=== PATIENT | male | born 1960 | race Caucasian/White ===

== ENCOUNTER → 2019-12-26 | Outpatient (REF) | payer OTHER ==
[2019-12-27 11:51] LABS: THYROID STIMULATING HORMONE 7.62 uIU/ML (0.358-3.740)
== END ==
LOC: M SFHCLERA 15:53
PROVIDERS: ATTEND Physician Assistant
DX: E78.2 Mixed hyperlipidemia (principal); R79.89 Other specified abnormal findings of blood chemistry

== ENCOUNTER → 2020-05-30 | Outpatient (CLI) | payer OTHER ==
[~2020-05-30] MED LIST: ASPI81CH33 PO; ATOR1TAB21; LEVO50TA5
== END ==
LOC: M LABSMTC 11:51
PROVIDERS: ATTEND Anesthesiology
DX: Z01.812 Encounter for preprocedural laboratory examination (principal); Z20.828 Contact with and (suspected) exposure to other viral communicable diseases
CPT/HCPCS: C9803; U0003

== ENCOUNTER 2020-06-04 08:30 | Day surgery (SDC) | payer BC, OTHER ==
[~2020-06-04] VITALS: Ht 170.2 cm; Wt 83.5 kg
[~2020-06-04 08:30] MED LIST changes: -ASPI81CH33 PO; +LIDOCAINE 2% 100MG/5ML SDV (FOR ANES.) As Ordered ONE; +NS 1,000 ML IV ONE; +propofoL 200 MG/20 ML VIAL As Ordered ONE
[2020-06-04] MEDS ORDERED: ASPI81CH33 PO (09:15)
--- NOTE | 2020-06-04 10:00 | ROOR ---
Patient Name: Elvis Zarate Procedure Date: 06/04/2020 9:37 AM Date of : 1960 Age: 60 Room: [facility] Gender: Male Note Status: Finalized Procedure: Total Colonoscopy to Cecum + ileoscopy Indications: Screening for colorectal malignant neoplasm, Last colonoscopy: 2005 Providers: Bertrand Grier MD Referring MD: You weber [facility] Requesting Provider: Medicines: Monitored Anesthesia Care Complications: No immediate complications. Procedure: Pre-Anesthesia Assessment: - The heart rate, respiratory rate, oxygen saturations, blood pressure, adequacy of pulmonary ventilation, and response to care were monitored throughout the procedure. The Colonoscope was introduced through the anus and advanced to the cecum, identified by appendiceal orifice and ileocecal valve. The colonoscopy was performed without difficulty. The patient tolerated the procedure well. The quality of the bowel preparation was excellent. Findings: The perianal and digital rectal examinations were normal. Non-bleeding internal hemorrhoids were found during retroflexion. The hemorrhoids were small and Grade I (internal hemorrhoids that do not prolapse). Scattered small-mouthed diverticula were found in the recto-sigmoid colon, sigmoid colon and descending colon. The exam was otherwise without abnormality on direct and retroflexion views. The terminal ileum appeared normal. Impression: - Non-bleeding internal hemorrhoids. - Diverticulosis in the recto-sigmoid colon, in the sigmoid colon and in the descending colon. - The examination was otherwise normal on direct and retroflexion views. - The examined portion of the ileum was normal. - No specimens collected. - The exam was otherwise normal to the cecum. Recommendation: - Patient has a contact number available for emergencies. The signs and symptoms of potential delayed complications were discussed with the patient. Return to normal activities tomorrow. Written discharge instructions were provided to the patient. - High fiber diet. - Discharge patient to home. - Continue present medications. - Repeat colonoscopy in 10 years for screening purposes. - Return to referring physician. - The findings and recommendations were discussed with the patient. Bertrand Grier MD Bertrand Grier MD 06/04/2020 9:59:57 AM Electronically signed by Bertrand Grier MD Number of Addenda: 0 Note Initiated On: 06/04/2020 9:37 AM Estimated Blood Loss: Estimated blood loss: none.
[2020-06-04 10:30] VITALS: BP 169/96
== END 2020-06-04 10:35 | disposition home or self-care (01) ==
LOC: M OPP 08:30
PROVIDERS: ATTEND Internal Medicine Gastroenterology
DX: Z12.11 Encounter for screening for malignant neoplasm of colon (principal); K64.0 First degree hemorrhoids; K57.90 Diverticulosis of intestine, part unspecified, without perforation or abscess without bleeding

== ENCOUNTER → 2021-04-02 | Outpatient (REF) | payer BC, OTHER ==
[~2021-04-02] MED LIST changes: +ASPI81CH33 PO; -LIDOCAINE 2% 100MG/5ML SDV (FOR ANES.) As Ordered ONE; -NS 1,000 ML IV ONE; -propofoL 200 MG/20 ML VIAL As Ordered ONE
== END ==
LOC: M LAB REF 11:16
PROVIDERS: ATTEND Physician Assistant Medical
DX: E78.00 Pure hypercholesterolemia, unspecified (principal)

== ENCOUNTER → 2021-04-24 | Outpatient (CLI) | payer BC, OTHER | LOC: M LAB 16:02 | PROVIDERS: ATTEND Physician Assistant Medical | DX: E78.00 Pure hypercholesterolemia, unspecified (principal) ==

== ENCOUNTER → 2021-05-30 | Outpatient (CLI) | payer BC, OTHER ==
--- NOTE | 2021-05-30 11:08 | REP ---
INDICATION: LOW BACK PAIN, FREQUENCY OF MICTURITION COMPARISON: 02/21/2008 TECHNIQUE: Real time galarza scale and color Doppler ultrasound examination using curved array transducer. FINDINGS: Bilateral kidneys are normal in contour, size, echogenicity and reniform shape normal intrarenal vasculature noted. No hydronephrosis, nephrolithiasis, cystic or renal mass lesion. No perinephric fluid collection. Right kidney measures 11.5 x 5.0 x 5.4 cm (RI 0.62) Left kidney measures 11.5 x 4.8 x 6.1 cm (RI 0.54) The bladder is under distended but mild wall thickening is suggested. No focal bladder mass lesion identified. IMPRESSION: 1. Normal age-appropriate appearance of the bilateral kidneys. No hydronephrosis. 2. Questionable mild bladder wall thickening. <Electronically signed by Jose R Braun > 05/30/21 1100
== END ==
LOC: M WHC 09:35
PROVIDERS: ATTEND Physician Assistant Medical
DX: M54.50 Low back pain, unspecified (principal); R35.0 Frequency of micturition

== ENCOUNTER → 2021-11-05 | Outpatient (CLI) | payer BC, OTHER | LOC: M RAD 13:26 | PROVIDERS: ATTEND Physician Assistant | DX: J32.0 Chronic maxillary sinusitis (principal) ==

== ENCOUNTER → 2024-01-12 | Outpatient (REF) | payer OTHER | LOC: M LAB REF 12:35 | PROVIDERS: ATTEND Physician Assistant Medical | DX: R53.83 Other fatigue (principal) ==

== ENCOUNTER → 2024-01-22 | Outpatient (REF) | payer OTHER ==
[2024-01-22 18:54] LABS: FOLATE > 24.0 NG/ML (>5.4)
[2024-01-22 18:55] LABS: VITAMIN B12 LEVEL 742 PG/ML (211-911)
== END ==
LOC: M LAB REF 16:19
PROVIDERS: ATTEND Physician Assistant Medical
DX: R20.0 Anesthesia of skin (principal)

== ENCOUNTER → 2024-10-27 | Outpatient (CLI) | payer BC, OTHER | LOC: M WUC 14:57 | PROVIDERS: ATTEND Physician Assistant Medical | DX: R06.02 Shortness of breath (principal) ==

== ENCOUNTER → 2025-05-16 | Outpatient (CLI) | payer BC | LOC: M PLAIMG 16:12 | PROVIDERS: ATTEND Physician Assistant | DX: R06.00 Dyspnea, unspecified (principal) ==

== ENCOUNTER → 2025-06-22 | Outpatient (CLI) | payer BC ==
[~2025-06-22] MED LIST changes: +METHACHOLINE KIT (6 VIAL.NEB PREMIX) INH ONE
== END ==
LOC: M CARPUL 14:38
PROVIDERS: ATTEND Physician Assistant
DX: R06.00 Dyspnea, unspecified (principal)
CPT/HCPCS: 94070; 95070; J7674